=== PATIENT | female | born 1965 | race Caucasian/White ===

== ENCOUNTER 2018-02-11 20:21 | Emergency (ER) | payer OTHER ==
[~2018-02-11] VITALS: Ht 157.5 cm; Wt 100.2 kg
[~2018-02-11 20:21] MED LIST: METF500T PO; METH-426 PO; METO50TE2 PO; ORE25 PO; PAX20 PO
[2018-02-11 20:40] VITALS: BP 144/93
[2018-02-11] MEDS ORDERED: DIAZEPAM 5 MG TAB PO ONE (21:55)
[2018-02-11 22:19] LABS: ANION GAP 13.7 (8-16); CARBON DIOXIDE 27.7 mmol/L (21-32); POTASSIUM 4.4 mmol/L (3.5-5.1)
[2018-02-11 22:54] VITALS: BP 148/92
== END 2018-02-11 22:54 | disposition home or self-care (01) ==
LOC: MED 20:21
DX: R20.2 Paresthesia of skin (principal); E11.9 Type 2 diabetes mellitus without complications; I10 Essential (primary) hypertension; E07.9 Disorder of thyroid, unspecified; Z79.84 Long term (current) use of oral hypoglycemic drugs
CPT/HCPCS: 36415; 71045; 80048; 93005; 99285

== ENCOUNTER 2019-07-10 14:26 | Emergency (ER) | payer OTHER ==
[~2019-07-10] VITALS: Ht 157.5 cm; Wt 99.8 kg
[~2019-07-10 14:26] MED LIST changes: +METH-1632 PO; -METH-426 PO
[2019-07-10 14:37] VITALS: BP 169/114
--- NOTE | 2019-07-10 14:47 | NUR ---
PT AMBULATED TO BED 02.
[2019-07-10] MEDS ORDERED: DEXAMETHASONE 10 MG/ML VIAL IM ONE (14:55)
--- NOTE | 2019-07-10 15:20 | NUR ---
PT TOLERATED MEDICATION, THEN D/C'D HOME. Patient discharged with v/s stable. Written and verbal after care instructions given and explained. Patient alert, oriented and verbalized understanding of instructions. Ambulatory with steady gait. All questions addressed prior to discharge. ID band removed. Patient advised to follow up with PMD. Rx of PRODNISON, ALBUTEROL given. Patient educated on indication of medication including possible reaction and side effects. Opportunity to ask questions provided and answered.
[2019-07-10 15:25] VITALS: BP 112/75
== END 2019-07-10 15:20 | disposition home or self-care (01) ==
LOC: MED 14:26
DX: J40 Bronchitis, not specified as acute or chronic (principal); E11.9 Type 2 diabetes mellitus without complications; I10 Essential (primary) hypertension; Z88.6 Allergy status to analgesic agent; Z98.890 Other specified postprocedural states
CPT/HCPCS: 96372; 99283; J1100

== ENCOUNTER 2019-12-01 06:57 | Emergency (ER) | payer OTHER ==
[~2019-12-01] VITALS: Ht 157.5 cm; Wt 98.4 kg
[2019-12-01 07:18] VITALS: BP 167/97
--- NOTE | 2019-12-01 07:20 | NUR ---
C/O TOOTHACHE, L EAR PAIN & HEADACHE X 1 WEEK. TOOK IBUPROFEN 800 MG AT 6.20 TODAY. PAIN 4/10 AT THIS TIME. MED HX: HTN, DM, HYPOTYROID
--- NOTE | 2019-12-01 07:30 | NUR ---
PT AMB TO BED 12.
--- NOTE | 2019-12-01 07:57 | NUR ---
Patient discharged with v/s stable. Written and verbal after care instructions given and explained. Patient alert, oriented and verbalized understanding of instructions. Ambulatory with steady gait. All questions addressed prior to discharge. ID band removed. Patient advised to follow up with PMD. Rx of PENICILLIN & IBUPROFEN given. Patient educated on indication of medication including possible reaction and side effects. Opportunity to ask questions provided and answered.
[2019-12-01 07:58] VITALS: BP 167/97
== END 2019-12-01 07:57 | disposition home or self-care (01) ==
LOC: MED 06:57
DX: R51 Headache (principal); K04.7 Periapical abscess without sinus; E11.9 Type 2 diabetes mellitus without complications; I10 Essential (primary) hypertension; E07.9 Disorder of thyroid, unspecified; Z79.84 Long term (current) use of oral hypoglycemic drugs; Z79.899 Other long term (current) drug therapy; Z88.5 Allergy status to narcotic agent
CPT/HCPCS: 82948; 99283

== ENCOUNTER 2021-04-08 00:06 | Emergency (ER) | payer OTHER ==
[~2021-04-08] VITALS: Ht 157.5 cm; Wt 99.8 kg
[~2021-04-08 00:06] MED LIST changes: +HYDR-4004 PO; -ORE25 PO
[2021-04-08 00:08] VITALS: BP 149/106
--- NOTE | 2021-04-08 00:27 | NUR ---
PT NIKOS ALS. TAKEN TO BED 12
--- NOTE | 2021-04-08 00:35 | NUR ---
55 YO F BIBA FOR C/O CP <1 HOUR. PT DESCRIBES PAIN PRESSURE 5/10 PT STATES SHE TOOK X 4 BABY ASA, AND METOPROLOL PRIOR TO ARRIVAL. DENIES N/V/D. PT CURRENTLY DENIES PAIN @ THIS TIME. PT STATES SHE HAD PRIOR DX OF IRREGULAR HEART BEAT. NO OTHER S/S OF ACUTE DISTRESS NOTED. PT DENIES CP/SOB. DENIES PAIN. NEW IV TO R FA 20G STARTED SL. HX: DM, HTN, IRREGULAR HEART BEAT LMP: 2 YRS AGO. AX: MORPHINE
[2021-04-08 01:10] LABS: BASOPHILS # (AUTO) 0.1 K/uL (0.00-0.22); BASOPHILS % (AUTO) 0.6 % (0.0-2.0); EOSINOPHILS # (AUTO) 0.1 K/uL (0-0.4); EOSINOPHILS % (AUTO) 1.6 % (0.0-4.0); HEMATOCRIT 42.6 % (36-48); HEMOGLOBIN 14.4 g/dL (12.0-16.0); LYMPHOCYTES # (AUTO) 4.3 K/uL (2.5-16.5); LYMPHOCYTES % (AUTO) 51.9 % (20.5-51.1); MEAN CORPUSCULAR HEMOGLOBIN 29 pg (27-31); MEAN CORPUSCULAR HGB CONC 34 g/dL (33-37); MEAN CORPUSCULAR VOLUME 85.2 fL (80-94); MONOCYTES # (AUTO) 0.4 K/uL (0.8-1.0); MONOCYTES % (AUTO) 4.5 % (1.7-9.3); NEUTROPHILS # (AUTO) 3.4 K/uL (1.8-7.7); NEUTROPHILS % (AUTO) 41.4 % (42.2-75.2); PLATELET COUNT (AUTO) 305 K/uL (140-450); RED CELL DISTRIBUTION WIDTH 13.2 % (11.6-13.7); WHITE BLOOD COUNT (AUTO) 8.3 K/uL (4.8-10.8)
[2021-04-08 01:30] LABS: ANION GAP 11.6 (8-16); CARBON DIOXIDE 29.4 mmol/L (21-32); CREATININE 0.7 mg/dL (0.6-1.3)
--- NOTE | 2021-04-08 03:00 | NUR ---
PT HAS EYES CLOSED; AROUSABLE, DENIES CP/SOB. WILL CONTINUE TO MONITOR.
[2021-04-08 05:07] VITALS: BP 131/78
--- NOTE | 2021-04-08 05:07 | NUR ---
Patient discharged with v/s stable. Written and verbal after care instructions given and explained. Patient verbalized understanding. Ambulatory with steady gait. All questions addressed prior to discharge. Advised to follow up with PMD.
== END 2021-04-08 05:07 | disposition home or self-care (01) ==
LOC: MED 00:06
DX: R07.9 Chest pain, unspecified (principal); R00.2 Palpitations; I48.91 Unspecified atrial fibrillation; E11.9 Type 2 diabetes mellitus without complications; I10 Essential (primary) hypertension; Z86.39 Personal history of other endocrine, nutritional and metabolic disease; Z98.890 Other specified postprocedural states; Z79.899 Other long term (current) drug therapy; Z88.5 Allergy status to narcotic agent
CPT/HCPCS: 36415; 71045; 80048; 84484; 85025; 93005; 99285; Q0163; Q0092